=== PATIENT | male | born 1970 | race Caucasian/White ===

== ENCOUNTER → 2016-09-25 | Outpatient (CLI) | payer BC ==
[~2016-09-25] MED LIST: AMOXICILLIN 8751 TAB PO; BENICAR HCT 12.1 TAB PO; NAPROSYN 2250 MG/TAB PO; NORCO 325 MG-51 TAB PO; PRIL40 PO; TYLENOL 325MG325 MG PO; ZOFRAN 4MG T4 MG/TAB PO
== END ==
LOC: WCC 13:30
DX: T81.31XA Disruption of external operation (surgical) wound, not elsewhere classified, initial encounter (principal)
CPT/HCPCS: G0463

== ENCOUNTER → 2018-12-23 | Outpatient (CLI) | payer BC ==
[~2018-12-23] MED LIST changes: +CATAPRES 0.1MG0.1 MG PO; +HCTZ 25MG TAB25 MG PO; +HYZAAR 50-12.1 UDTAB PO; +PRINIVIL20 MG PO; +PRINZIDE 25 MG-1 TAB PO
[2018-12-23 17:17] LABS: BASO # 0.1 (0.0-0.2); EOS # 0.5 (0.0-0.7); GRAN # 8.1 (1.4-6.5); GRAN % 71.6 % (42.2-75.2); LYMPH # 1.9 (1.2-3.4); LYMPH % 16.5 % (20.0-51.0); MEAN CELL VOLUME 82 fl (80.0-100.0); MEAN CORPUSCULAR HEMOGLOBIN 24 pg (27.0-31.0); MEAN CORPUSCULAR HGB CONC 30 g/dl (33.0-37.0); MEAN PLATELET VOLUME 11.6 fl (7.4-10.4); MONO # 0.7 (0.1-0.6); MONO % 6.5 % (1.7-9.3); PLATELET COUNT 372 K/mm3 (130-400); RED BLOOD COUNT 5.36 M/mm3 (4.20-5.60); RETIC # 0.08 M/mm3 (0.02-0.16); RETIC % 1.4 % (0.5-3.52)
[2018-12-23 17:34] LABS: URIC ACID 7.2 mg/dL (3.5-8.5)
== END ==
LOC: ZCOL.LAB 16:08
PROVIDERS: Family Medicine
DX: I12.9 Hypertensive chronic kidney disease with stage 1 through stage 4 chronic kidney disease, or unspecified chronic kidney disease (principal); N18.3 Chronic kidney disease, stage 3 (moderate); E66.01 Morbid (severe) obesity due to excess calories; M10.9 Gout, unspecified

== ENCOUNTER 2019-01-25 08:58 | Inpatient (IN) | payer BC ==
[~2019-01-25] VITALS: Ht 177.8 cm; Wt 167.7 kg
[2019-01-25 09:29] VITALS: BP 139/105; BP 148/83; PULSE 86; TEMP 98.5
[2019-01-25 09:35] VITALS: BP 139/104
[2019-01-25 09:46] LABS: BASO # 0.1 (0.0-0.2); BASO % 0.6 % (0.0-2.0); EOS # 0.5 (0.0-0.7); EOS % 5.2 % (0-4.0); GRAN # 6.5 (1.4-6.5); GRAN % 69.7 % (42.2-75.2); HEMATOCRIT 37.5 % (42.0-52.0); HEMOGLOBIN 11.4 g/dl (13.5-18.0); LYMPH # 1.7 (1.2-3.4); LYMPH % 18.6 % (20.0-51.0); MEAN CELL VOLUME 82 fl (80.0-100.0); MEAN CORPUSCULAR HEMOGLOBIN 25 pg (27.0-31.0); MEAN CORPUSCULAR HGB CONC 30 g/dl (33.0-37.0); MEAN PLATELET VOLUME 10.5 fl (7.4-10.4); MONO # 0.5 (0.1-0.6); MONO % 5.5 % (1.7-9.3); PLATELET COUNT 236 K/mm3 (130-400); REDCELL DISTRIBUTION WIDTH-CV 18.6 % (11.5-14.5)
[2019-01-25 09:50] LABS: INR 1.2 (0.8-3.0); PROTHROMBIN TIME 13.8 SECONDS (9.7-12.8)
[2019-01-25] MEDS ORDERED: ELIQUIS 5MG PO (09:57)
[2019-01-25] MEDS ORDERED: THERA-D 20002000 IU PO (09:58)
[2019-01-25] MEDS ORDERED: B-121000 MCG PO (09:59)
[2019-01-25] MEDS ORDERED: FERROUSAL325 MG PO (10:01)
[2019-01-25] MEDS ORDERED: LASIX 40MG TABL40 MG PO (10:01)
[2019-01-25] MEDS ORDERED: APRESOLINE50 MG PO (10:02)
[2019-01-25] MEDS ORDERED: TOPROL XL 50MG50 MG PO (10:04)
[2019-01-25 10:06] LABS: ALANINE AMINOTRANSFERASE < 6 U/L (21-72); ALBUMIN 3.5 gm/dL (3.5-5.0); ALKALINE PHOSPHATASE 97 U/L (50-136); ANION GAP 7 mmol/L (7-16); AST,SGOT 22 U/L (15-37); BILIRUBIN UNCONJUGATED 0.2 mg/dL (0.0-1.1); BILIRUBIN,DIRECT 0.1 mg/dL (0.0-0.4); BILIRUBIN,TOTAL 0.4 mg/dL (0.0-1.0); BLOOD UREA NITROGEN 35 mg/dL (9-20); CALCIUM 8.8 mg/dL (8.4-10.2); CARBON DIOXIDE 24 mmol/L (22-30); CHLORIDE 111 mmol/L (98-107); CREATININE, serum 1.95 (0.66-1.25); GLUCOSE 103 mg/dL (74-106); POTASSIUM 4.4 mmol/L (3.4-5.0); SODIUM 142 mmol/L (137-145)
[2019-01-25] MEDS ORDERED: PRINIVIL10 MG PO (10:06)
[2019-01-25] MEDS ORDERED: MULTI VITAMINS1 TAB PO (10:07)
[2019-01-25] MEDS ORDERED: ALDACTONE 25MG25 M1 PO (10:07)
[2019-01-25] MEDS ORDERED: PRIL40 PO (10:08)
[2019-01-25] MEDS ORDERED: ZYLOPRIM 300MG300 MG PO (10:10)
[2019-01-25 10:17] LABS: MAGNESIUM 2.3 mg/dL (1.6-2.3)
[2019-01-25 11:35] VITALS: BP 149/94; PULSE 80; TEMP 98.8
--- NOTE | 2019-01-25 15:20 | NUR ---
Pt alert and oriented and stable. Pt given second dose of Amiodarone after 4h EKG completed and QTC 432. Pt IV patent no redness or infiltration noted. Pt has call light in reach and remains on telemetry.
[2019-01-25 15:34] VITALS: BP 136/81; PULSE 83; TEMP 98.3
--- NOTE | 2019-01-25 19:00 | NUR ---
report given to Ping Benson
[2019-01-25 19:39] VITALS: BP 152/83; PULSE 56; TEMP 98.5
--- NOTE | 2019-01-25 19:50 | NUR ---
Shift assessment complete. Pt resting in bed, awake, a&o, cooperative c cares. Pt denies pain or other c/o. Reports "some palpitations a while ago", hernando SOB, CP or any other c/o. Tele in place. INT patent. Pt denies needs. Call light in reach, will monitor.
[2019-01-26] VITALS (7 sets, daily range): BP systolic 100–132; BP diastolic 52–87; PULSE 61–78; TEMP 97.4–98.7
[2019-01-26 06:01] LABS: ARTERIAL BLD GAS O2 SATURATION 95.9 % (92-100); ARTERIAL BLD GAS TCO2 CT 23.1; ARTERIAL BLOOD GAS BASE EXCESS -2.4 (-2-2); ARTERIAL BLOOD GAS PCO2 36.7 mmHg (35-45); ARTERIAL BLOOD GAS PO2 90.5 mmHg (80-100)
[2019-01-26 08:12] LABS: BASO # 0.1 (0.0-0.2); BASO % 0.8 % (0.0-2.0); EOS # 0.5 (0.0-0.7); GRAN # 7.8 (1.4-6.5); GRAN % 71.6 % (42.2-75.2); HEMATOCRIT 37.1 % (42.0-52.0); HEMOGLOBIN 11.4 g/dl (13.5-18.0); LYMPH # 1.8 (1.2-3.4); LYMPH % 16.2 % (20.0-51.0); MEAN CELL VOLUME 82 fl (80.0-100.0); MEAN CORPUSCULAR HEMOGLOBIN 25 pg (27.0-31.0); MEAN CORPUSCULAR HGB CONC 31 g/dl (33.0-37.0); MEAN PLATELET VOLUME 10.1 fl (7.4-10.4); MONO # 0.7 (0.1-0.6); PLATELET COUNT 236 K/mm3 (130-400); RED BLOOD COUNT 4.54 M/mm3 (4.20-5.60)
[2019-01-26 08:21] LABS: CALCIUM 8.7 mg/dL (8.4-10.2); CREATININE, serum 1.91 (0.66-1.25); POTASSIUM 4.7 mmol/L (3.4-5.0)
--- NOTE | 2019-01-26 09:11 | NUR ---
Pt stable this am. Pt denies needs. Pt alert and oriented. Pt am assessment completed. Pt denies SOB or chest pain. Pt remains on telemetry and rhythm is still AFIB. Pt has call light in reach and IV free of complications.
--- NOTE | 2019-01-26 11:29 | NUR ---
First visit from the assembler handbags. No needs right now.
--- NOTE | 2019-01-26 13:34 | NUR ---
CAT student met with the patient to discuss discharge planning. The patient lives in [place] with a roommate. The patient reports independence with ADLs and has no DME. The patients PCP is Dr. Head and he gets his medications from [facility]. The patient reports no difficulties obtaining his medications. The patient does not have DPOA-HC in EMR but was interested in completing one. CAT provided a DPOA-HC form. The patient plans to return home upon discharge. No additional needs at this time.
--- NOTE | 2019-01-26 19:23 | NUR ---
Pt stable this shift. Pt had loop recorder placed in left upper chest. CDI and denies pain at this time. Pt IV free of complications. Pt denies SOB or chest pain. Pt independent in the room. Pt has call light in reach and friend came by to see him.
--- NOTE | 2019-01-26 20:46 | NUR ---
pt resting in bed A+Ox4. reports no pain. no SOA. dressing to left chest is DCI. scheduled 0900 Cephalexin given at 1345- this nurse held akn for pharm to reschedules times. this nurse will give 2100 dose at 0200 (Q12). needs at this time. call light in reach
[2019-01-27 03:17] VITALS: BP 99/49; PULSE 67; TEMP 98
--- NOTE | 2019-01-27 05:10 | NUR ---
pt had an uneventful night. reports no pain. dressing to left chest is DCI. no SOA. tele on, reads AFIB throughout night. no needs at this time. call light in reach
[2019-01-27 06:55] LABS: BASO # 0.1 (0.0-0.2); BASO % 0.7 % (0.0-2.0); EOS # 0.6 (0.0-0.7); EOS % 4.7 % (0-4.0); GRAN # 8.6 (1.4-6.5); GRAN % 72.4 % (42.2-75.2); HEMATOCRIT 37.6 % (42.0-52.0); HEMOGLOBIN 11.5 g/dl (13.5-18.0); LYMPH # 1.8 (1.2-3.4); LYMPH % 15.6 % (20.0-51.0); MEAN CELL VOLUME 82 fl (80.0-100.0); MEAN CORPUSCULAR HEMOGLOBIN 25 pg (27.0-31.0); MEAN CORPUSCULAR HGB CONC 31 g/dl (33.0-37.0); MEAN PLATELET VOLUME 10.8 fl (7.4-10.4); MONO # 0.7 (0.1-0.6); MONO % 6.2 % (1.7-9.3); PLATELET COUNT 237 K/mm3 (130-400); REDCELL DISTRIBUTION WIDTH-CV 19.4 % (11.5-14.5)
--- NOTE | 2019-01-27 06:55 | NUR ---
report given to OSMANY Culp. pt reports no needs at this time
[2019-01-27 07:03] LABS: INR 1.4 (0.8-3.0); PROTHROMBIN TIME 15.6 SECONDS (9.7-12.8)
[2019-01-27 07:07] LABS: CALCIUM 8.7 mg/dL (8.4-10.2); CREATININE, serum 2.17 (0.66-1.25); MAGNESIUM 2.1 mg/dL (1.6-2.3); POTASSIUM 4.6 mmol/L (3.4-5.0)
[2019-01-27 07:14] VITALS: BP 128/73; PULSE 77; TEMP 97.7
--- NOTE | 2019-01-27 07:55 | NUR ---
Assessment complete. Pt is AXO X3, states he has an ache to the loop recorder site. Breathing is even and unlabored on room air. Tele on. LH INT flushes easily, remains free of complications, and is CDI. Pt is resting quietly in the bed at this time and he denies further needs. Call light within reach, will continue to monitor.
[2019-01-27 11:37] VITALS: BP 117/72; PULSE 55; TEMP 98.2
[2019-01-27 16:10] VITALS: BP 144/90; PULSE 69; TEMP 97.8
--- NOTE | 2019-01-27 18:46 | NUR ---
Pt has been resting on and off throughout the day. He has remained free of pain. Pt is sitting up in the bed waiting for his dinner at this time and he denies further needs. Call light within reach. Report given to OSMANY Munoz.
--- NOTE | 2019-01-27 21:00 | NUR ---
pt left chest dressing DCI. no pain at site.
[2019-01-27 21:26] VITALS: BP 127/81; PULSE 71; TEMP 98
--- NOTE | 2019-01-27 21:30 | NUR ---
pt resting in bed A+OX4. reports no pain. pt tele on and reads AFIB. pt educated on NPO at midnight for cardioversion. IV to right hand leaking and painful. Rain CERON DCed left hand IV. Placed new 22 G to the right forarm- flushes well no pain or swelling. shift assessment complete. no needs at this time. call light inreach
[2019-01-28] VITALS (13 sets, daily range): BP systolic 94–147; BP diastolic 58–85; PULSE 51–87; TEMP 97.3–98.2
--- NOTE | 2019-01-28 05:16 | NUR ---
pt had an uneventful ngiht. tele on. no pain. NPO at midnight. no needs at this time. call light in reach
[2019-01-28 07:08] LABS: BASO # 0.1 (0.0-0.2); BASO % 0.7 % (0.0-2.0); EOS # 0.8 (0.0-0.7); EOS % 6.2 % (0-4.0); GRAN # 8.3 (1.4-6.5); GRAN % 69.2 % (42.2-75.2); HEMATOCRIT 39.5 % (42.0-52.0); LYMPH % 16.8 % (20.0-51.0); MEAN CELL VOLUME 83 fl (80.0-100.0); MEAN CORPUSCULAR HEMOGLOBIN 25 pg (27.0-31.0); MEAN CORPUSCULAR HGB CONC 30 g/dl (33.0-37.0); MEAN PLATELET VOLUME 10.9 fl (7.4-10.4); MONO # 0.8 (0.1-0.6); MONO % 6.6 % (1.7-9.3); PLATELET COUNT 265 K/mm3 (130-400); RED BLOOD COUNT 4.76 M/mm3 (4.20-5.60); REDCELL DISTRIBUTION WIDTH-CV 19.6 % (11.5-14.5)
[2019-01-28 07:12] LABS: CALCIUM 8.9 mg/dL (8.4-10.2); CREATININE, serum 2.49 (0.66-1.25); MAGNESIUM 2.1 mg/dL (1.6-2.3); POTASSIUM 4.8 mmol/L (3.4-5.0)
--- NOTE | 2019-01-28 07:12 | NUR ---
report given to OSMANY Culp.
[2019-01-28 07:21] LABS: INR 1.5 (0.8-3.0)
--- NOTE | 2019-01-28 08:30 | NUR ---
Assessment complete. Pt is AXO X3, denies having any pain at this time. Breathing is even and unlabored on room air. Tele on. RF INT flushes easily, remains free of complications, and is CDI. He remains NPO for procedure today. Pt is resting quietly in the bed at this time and he denies further needs. Call light within reach, will continue to monitor.
--- NOTE | 2019-01-28 12:20 | NUR ---
Pt left the floor at this time for procedure.
--- NOTE | 2019-01-28 13:15 | NUR ---
Pt returned to room 317.
--- NOTE | 2019-01-28 19:02 | NUR ---
Pt has been resting on and off throughout the day. He complained of some soreness to his L hand where his IV infiltrated last night. Post-ops stable after CV. Pt is sitting up in the bed watching TV at this time and he denies further needs. Call light within reach. Report given to OSMANY Rowan.
--- NOTE | 2019-01-28 20:30 | NUR ---
Completed assessment and medication administration; PT tolerated call cares well; PT A&Ox4, BS active x4, obese, BLE have discoloration R/T PVD, loop recorder placed 01/26/19, skin clean. dry, intact and without S/S of infection; HRRR post cardioversion 01/28/19, lung CTAB; No further assessed or verbalized concerns at time of exit; PT able to return to a comfortable position in bed with personal items and call light within reach; Will continues to monitor. CDA
--- NOTE | 2019-01-29 02:34 | NUR ---
PT resting well in bed throuhgout rounds; No further acute concerns at time of rounds; PT resting in a comfortable position in bed with personal items and call light within reach; Will continue to monitor. CDA
[2019-01-29 04:00] VITALS: BP 104/54; PULSE 55; TEMP 97.9
--- NOTE | 2019-01-29 06:49 | NUR ---
Report given to OSMANY Packer; No significant changes or concerns at time of shift change. CDA
[2019-01-29 07:20] LABS: BASO # 0.1 (0.0-0.2); BASO % 0.6 % (0.0-2.0); EOS # 0.7 (0.0-0.7); EOS % 5.8 % (0-4.0); GRAN # 8.5 (1.4-6.5); GRAN % 73.8 % (42.2-75.2); HEMATOCRIT 37.3 % (42.0-52.0); HEMOGLOBIN 11.4 g/dl (13.5-18.0); LYMPH # 1.6 (1.2-3.4); LYMPH % 13.5 % (20.0-51.0); MEAN CELL VOLUME 82 fl (80.0-100.0); MEAN CORPUSCULAR HEMOGLOBIN 25 pg (27.0-31.0); MEAN CORPUSCULAR HGB CONC 31 g/dl (33.0-37.0); MEAN PLATELET VOLUME 10.9 fl (7.4-10.4); MONO # 0.7 (0.1-0.6); MONO % 5.9 % (1.7-9.3); PLATELET COUNT 251 K/mm3 (130-400); RED BLOOD COUNT 4.54 M/mm3 (4.20-5.60); REDCELL DISTRIBUTION WIDTH-CV 19.7 % (11.5-14.5)
[2019-01-29 07:27] LABS: INR 1.4 (0.8-3.0); PROTHROMBIN TIME 15.9 SECONDS (9.7-12.8)
[2019-01-29 07:34] VITALS: BP 108/54; PULSE 61; TEMP 98.3
[2019-01-29 07:40] LABS: CALCIUM 8.6 mg/dL (8.4-10.2); CREATININE, serum 3.39 (0.66-1.25); MAGNESIUM 2.2 mg/dL (1.6-2.3); POTASSIUM 4.5 mmol/L (3.4-5.0)
--- NOTE | 2019-01-29 09:00 | NUR ---
Assessment completed, alert/oriented, vital signs stable, denies pain, his creatnine did come back >3 this morning, I have notified and held off on all his morning meds for the time being, heart RRR/ SR on tele, lungs CTA, no reps.difficulty note, Loop recorder incision site looks good/ steri strips intact, patient denies other needs, was going to discuss plan of care with and update me with the plan
[2019-01-29] MEDS ORDERED: ZOLOFT 50MG50 MG PO (11:00)
[2019-01-29] MEDS ORDERED: LASIX 20MG TABL20 MG PO (11:02)
[2019-01-29] MEDS ORDERED: APRESOLINE50 MG PO (11:03)
[2019-01-29] MEDS ORDERED: PACERONE200 MG PO (11:06)
[2019-01-29] MEDS ORDERED: TOPROL XL100 MG PO (11:08)
--- NOTE | 2019-01-29 13:35 | NUR ---
The patient completed DPOA-HC. He designated his parent's (Ed & Tanya) and his sister (Ping). SW and the patient's RN witnessed the patient's signature. The patient was provided with the original and some copies. A copy was placed in the patient's chart. No additional needs at this time.
--- NOTE | 2019-01-29 13:52 | NUR ---
Discharge instructions reviewed with the patient and his family, instructed to follow up with cardiology and nephrology as carlos, instructed to have labs drawn Friday when at Cardiology office, discussed all medicaiton changes and new meds, IV removed, loop recorder incision care discussed with patient, he verbalized understanding of D/C instructions and denies other needs, [employer] escorted him out the door
== END 2019-01-29 13:54 | disposition home or self-care (01) | DRG 261 ==
LOC: MEDICAL 08:58
PROVIDERS: Internal Medicine Pulmonary Disease; ADMIT Internal Medicine Cardiovascular Disease
PROC: 5A2204Z Restoration of Cardiac Rhythm, Single (ICD-10-PCS; principal; 2019-01-28)
PROC: 4A1234Z Monitoring of Cardiac Electrical Activity, Percutaneous Approach (ICD-10-PCS; 2019-01-28)
PROC: 0JH632Z Insertion of Monitoring Device into Chest Subcutaneous Tissue and Fascia, Percutaneous Approach (ICD-10-PCS; 2019-01-28)
DX: I48.0 Paroxysmal atrial fibrillation (principal); F33.9 Major depressive disorder, recurrent, unspecified; I13.0 Hypertensive heart and chronic kidney disease with heart failure and stage 1 through stage 4 chronic kidney disease, or unspecified chronic kidney disease; I50.20 Unspecified systolic (congestive) heart failure; N20.0 Calculus of kidney; N18.3 Chronic kidney disease, stage 3 (moderate); G47.33 Obstructive sleep apnea (adult) (pediatric); Z79.01 Long term (current) use of anticoagulants; Z51.81 Encounter for therapeutic drug level monitoring; E66.01 Morbid (severe) obesity due to excess calories; I42.9 Cardiomyopathy, unspecified; F41.9 Anxiety disorder, unspecified; Z98.84 Bariatric surgery status; K21.9 Gastro-esophageal reflux disease without esophagitis; M10.9 Gout, unspecified
CPT/HCPCS: C1764; J2704; J3010

== ENCOUNTER 2019-05-01 21:27 | Emergency (ER) | payer BC ==
[~2019-05-01] VITALS: Ht 177.8 cm; Wt 159.1 kg
[~2019-05-01 21:27] MED LIST changes: +ALDACTONE 25MG25 M1 PO; +APRESOLINE50 MG PO; +B-121000 MCG PO; +ELIQUIS 5MG PO; +FERROUSAL325 MG PO; +LASIX 20MG TABL20 MG PO; +LASIX 40MG TABL40 MG PO; +MULTI VITAMINS1 TAB PO; +PACERONE200 MG PO; +PRINIVIL10 MG PO; +THERA-D 20002000 IU PO; +TOPROL XL 50MG50 MG PO; +TOPROL XL100 MG PO; +ZOLOFT 50MG50 MG PO; +ZYLOPRIM 300MG300 MG PO
[2019-05-01 21:30] VITALS: TEMP 98.4
[2019-05-01 22:15] VITALS: BP 153/87; PULSE 74
== END 2019-05-01 22:17 | disposition home or self-care (01) ==
LOC: COL.ER 21:27
DX: S61.210A Laceration without foreign body of right index finger without damage to nail, initial encounter (principal); Z23 Encounter for immunization; W25.XXXA Contact with sharp glass, initial encounter; Y92.009 Unspecified place in unspecified non-institutional (private) residence as the place of occurrence of the external cause

== ENCOUNTER 2019-05-10 13:49 | Emergency (ER) | payer BC ==
[2019-05-10 14:03] VITALS: BP 192/88; PULSE 56; TEMP 98.4
== END 2019-05-10 14:06 | disposition home or self-care (01) ==
LOC: COL.ER 13:49
DX: Z48.02 Encounter for removal of sutures (principal)

== ENCOUNTER → 2019-07-22 | Outpatient (CLI) | payer BC | LOC: ZCOL.LAB 17:33 | DX: Z12.5 Encounter for screening for malignant neoplasm of prostate (principal) ==

== ENCOUNTER 2020-05-11 14:59 | Emergency (ER) | payer BC ==
[~2020-05-11] VITALS: Ht 177.8 cm; Wt 181.8 kg
[2020-05-11 15:06] VITALS: BP 157/87; TEMP 98.2
[2020-05-11 15:41] LABS: BASO # 0.1 (0.0-0.2); BASO % 0.7 % (0.0-2.0); EOS # 0.4 (0.0-0.7); EOS % 3.2 % (0-4.0); GRAN % 80.5 % (42.2-75.2); HEMATOCRIT 36.6 % (42.0-52.0); HEMOGLOBIN 11.2 g/dl (13.5-18.0); LYMPH # 1.1 (1.2-3.4); LYMPH % 9.7 % (20.0-51.0); MEAN CELL VOLUME 85 fl (80.0-100.0); MEAN CORPUSCULAR HEMOGLOBIN 26 pg (27.0-31.0); MEAN CORPUSCULAR HGB CONC 31 g/dl (33.0-37.0); MEAN PLATELET VOLUME 10.4 fl (7.4-10.4); MONO # 0.6 (0.1-0.6); MONO % 5.5 % (1.7-9.3); PLATELET COUNT 244 K/mm3 (130-400); RED BLOOD COUNT 4.32 M/mm3 (4.20-5.60); REDCELL DISTRIBUTION WIDTH-CV 16.4 % (11.5-14.5)
[2020-05-11 15:53] LABS: ALANINE AMINOTRANSFERASE 40 U/L (4-49); ALBUMIN 3.7 gm/dL (3.5-5.0); ALKALINE PHOSPHATASE 93 U/L (50-136); ANION GAP 6 mmol/L (7-16); AST,SGOT 50 U/L (15-37); BILIRUBIN,TOTAL 0.7 mg/dL (0.0-1.0); BLOOD UREA NITROGEN 32 mg/dL (9-20); C-REACTIVE PROTEIN 2.3 mg/dL (0.0-0.9); CALCIUM 8.4 mg/dL (8.4-10.2); CARBON DIOXIDE 25 mmol/L (22-30); CHLORIDE 106 mmol/L (98-107); CREATININE, serum 1.97 (0.66-1.25); GLUCOSE 94 mg/dL (74-106); LIPASE 149 U/L (23-300); POTASSIUM 4.2 mmol/L (3.4-5.0); SODIUM 137 mmol/L (137-145)
[2020-05-11 16:02] LABS: TROPONIN-I < 0.012 ng/mL (0.000-0.035)
[2020-05-11 16:15] LABS: COLLECTION METHOD CLEAN CATCH
[2020-05-11 16:24] LABS: MUCOUS Present /lpf; PH 5 (5-8); SQUAMOUS EPITHELIAL None Seen /hpf; URINE APPEARANCE Clear; URINE BACTERIA None Seen /hpf; URINE BILIRUBIN Negative (NEGATIVE); URINE BLOOD Negative (NEGATIVE); URINE COLOR Yellow; URINE GLUCOSE Negative (NEGATIVE); URINE KETONE Negative (NEGATIVE); URINE LEUKOCYTE ESTERASE Negative (NEGATIVE); URINE NITRATE Negative (NEGATIVE); URINE PROTEIN(semi-quant) Negative (NEGATIVE); URINE RBC 0-2 /hpf; URINE UROBILINOGEN Negative (NEGATIVE)
[2020-05-11 17:21] VITALS: PULSE 65
== END 2020-05-11 17:18 | disposition home or self-care (01) ==
LOC: COL.ER 14:59
PROVIDERS: Emergency Medicine
DX: K43.9 Ventral hernia without obstruction or gangrene (principal); I10 Essential (primary) hypertension; I48.91 Unspecified atrial fibrillation; Z87.442 Personal history of urinary calculi; Z79.01 Long term (current) use of anticoagulants
CPT/HCPCS: J2405; J7030

== ENCOUNTER → 2021-07-31 | Outpatient (CLI) | payer BC | LOC: ZCOL.LAB 15:27 | DX: Z01.812 Encounter for preprocedural laboratory examination (principal); Z20.822 Contact with and (suspected) exposure to COVID-19 ==

== ENCOUNTER → 2021-10-03 | Outpatient (CLI) | payer BC | LOC: ZCOL.LAB 10:39 | DX: Z01.812 Encounter for preprocedural laboratory examination (principal); Z20.822 Contact with and (suspected) exposure to COVID-19 ==

== ENCOUNTER 2021-10-28 09:53 | Emergency (ER) | payer SELFPAY ==
[~2021-10-28] VITALS: Ht 177.8 cm; Wt 172.7 kg
[2021-10-28 10:13] VITALS: TEMP 98.1
[2021-10-28 11:00] VITALS: BP 135/80; PULSE 68
== END 2021-10-28 11:10 | disposition home or self-care (01) ==
LOC: COL.ER 09:53
DX: S61.213A Laceration without foreign body of left middle finger without damage to nail, initial encounter (principal); I48.91 Unspecified atrial fibrillation; Z79.01 Long term (current) use of anticoagulants; W26.0XXA Contact with knife, initial encounter; Y99.0 Civilian activity done for income or pay